=== PATIENT | male | born 1990 | race African-American/Black ===

== ENCOUNTER 2016-05-29 16:25 | Emergency (ER) | payer OTHER ==
[~2016-05-29 16:25] MED LIST: IBUPROFEN800 MG PO; NO MEDICATIONS; PREDNISONE10 MG/DOSE PO; ULTRAM PO
[2016-05-29 16:43] LABS: INFLUENZA A NEG (NEG); INFLUENZA B NEG (NEG)
== END 2016-05-29 17:08 | disposition home or self-care (01) ==
LOC: SED 16:25
PROVIDERS: Physician Assistant
DX: J06.9 Acute upper respiratory infection, unspecified (principal); F17.200 Nicotine dependence, unspecified, uncomplicated
CPT/HCPCS: 87651; 87804; 99282